=== PATIENT | female | born 1995 | race African-American/Black ===

== ENCOUNTER 2020-03-26 17:23 | Emergency (ER) | payer BC, OTHER ==
[~2020-03-26] VITALS: Ht 167.6 cm; Wt 81.7 kg
[2020-03-26 17:38] VITALS: BP 123/64
== END 2020-03-26 18:30 | disposition home or self-care (01) ==
LOC: ER 17:23
DX: N60.12 Diffuse cystic mastopathy of left breast (principal); N60.11 Diffuse cystic mastopathy of right breast